=== PATIENT | female | born 1960 | race Caucasian/White ===

== ENCOUNTER 2021-09-13 15:10 | Emergency (ER) | payer SELFPAY ==
--- OUTSIDE RECORDS SUMMARY | 2021-09-13 15:13 | XMS REPORT | Continuity of Care Document ---
:1960 Author Organization [facility] t Address [address] [place] [address] Care Team Providers Name Role Phone margarita Attending Clinician Unavailable Payers Payer Name Policy Type Policy Number Effective Date Expiration Date S ource Sliding Fee - P [id number] 2019 2020 Cat 1 00:00:00 00:00:00 Problems This patient has no known problems. Allergies, Adverse Reactions, Alerts This patient has no known allergies or adverse reactions. Medications This patient has no known medications. Procedures This patient has no known procedures. Encounters Start End Encounter Admission Attending Care Care Encounter Source Date/Time Date/Time Type Type Clinicians Facility Department ID 2021-07-07 Outpatient rudi [facility] [id number] [facility] 16:35:39 [place] [id number] [facility] 2021-03-02 2021-03-02 Outpatient [facility] [id number] [facility] 2021-03-01 2021-03-01 Outpatient [facility] [id number] [facility] Results This patient has no known results.
[2021-09-13] MEDS ORDERED: KETOROLAC 30 MG/ML INJ ONE (16:13)
--- NOTE | 2021-09-13 16:19 | RAD REPORT ---
EXAM DESCRIPTION: RAD - Foot Left 3 View - 09/13/2021 4:12 pm CLINICAL HISTORY: trauma COMPARISON: No comparisons FINDINGS: Minimally displaced fracture involving the metaphysis of the second metatarsal proximally. No new fractures. IMPRESSION: Minimally displaced second proximal metatarsal fracture. No intra-articular extension is identified. No findings to suggest a Lisfranc injury.
[2021-09-13] MEDS ORDERED: TRAMADOL HCL 50 MG TAB ONE (17:02)
--- NOTE | 2021-09-13 17:07 | ER ---
Nurse's Notes [facility] Name: Clara Whitmore Age: 60 yrs Sex: Female : 1960 Arrival Date: 09/13/2021 Time: 15:13 Bed 15 Private MD: Diagnosis: Foot Fracture Presentation: 09/13 15:23 Chief complaint: Patient states: she tripped on the bike rack [place] the movie theatre and ap3 twisted her left foot. Patient states she attempted to make it through the movie, but was unable to due to the pain. Coronavirus screen: At this time, the client does not indicate any symptoms associated with coronavirus-19. Ebola Screen: No symptoms or risks identified at this time. Initial Sepsis Screen: Does the patient meet any 2 criteria? No. Patient's initial sepsis screen is negative. Does the patient have a suspected source of infection? No. Patient's initial sepsis screen is negative. Risk Assessment: Do you want to hurt yourself or someone else? Patient reports no desire to harm self or others. Onset of symptoms was September 13, 2021. 15:23 Method Of Arrival: Wheelchair ap3 15:23 Acuity: ALBARO 4 ap3 Triage Assessment: 15:28 General: Appears in no apparent distress. uncomfortable, Behavior is calm, cooperative, ap3 appropriate for age. Pain: Complains of pain in left foot Pain began suddenly, Current management is with Tylenol. Neuro: Level of Consciousness is awake, alert, obeys commands, Oriented to person, place, time, situation, Appropriate for age. Respiratory: Airway is patent Respiratory effort is even, unlabored. Musculoskeletal: Swelling present in dorsum of left foot. Injury Description: fall. Historical: - Home Meds: 15:26 acne medication [Active]; ap3 - PSHx: 15:26 Appendectomy; Total abdominal hysterectomy; ap3 - Immunization history:: Client reports having NOT received the Covid vaccine. - Social history:: Smoking status: Patient reports the use of cigarette tobacco products, smokes one-half pack cigarettes per day, Patient uses alcohol, occasionally. Screenin:27 Abuse screen: Denies threats or abuse. Nutritional screening: No deficits noted. ap3 Tuberculosis screening: No symptoms or risk factors identified. Fall Risk Fall in past 12 months (25 points). No secondary diagnosis (0 pts). No IV (0 pts). Ambulatory Aid- None/Bed Rest/Nurse Assist (0 pts). Gait- Weak (10 pts.). Mental Status- Oriented to own ability (0 pts). Total Ocasio Fall Scale indicates Low Risk Score (25-44 pts). Fall prevention measures have been instituted. Side Rails Up X 2 Placed close to Nursing Station Frequent Obs/Assesments occuring As available Patient and Family Educated on Fall Prevention Program and strategies. Assessment: 15:34 General: Appears uncomfortable, Behavior is calm, cooperative. Pain: Complains of pain jg9 in left foot Alleviated by rest, ELEVATION Aggravated by weight bearing. Neuro: No deficits noted. Cardiovascular: No deficits noted. Respiratory: No deficits noted. GI: No deficits noted. : No deficits noted. EENT: No deficits noted. Derm: No deficits noted. Musculoskeletal: No deficits noted. Vital Signs: 15:23 BP 117 / 96; Pulse 68; Resp 16; Temp 97.9(TE); Pulse Ox 100% on R/A; Weight 61.23 kg; ap3 Height 5 ft. 5 in. (165.10 cm); 15:30 BP 138 / 93; Pulse 88; Resp 14; Pulse Ox 100% on R/A; jg9 16:42 BP 157 / 97; Pulse 87; Resp 18; Pulse Ox 98% on R/A; fontanez 15:23 Body Mass Index 22.46 (61.23 kg, 165.10 cm) ap3 ED Course: 15:13 Patient arrived in ED. rg4 15:25 Ice pack to injury. jg9 15:26 Triage completed. ap3 15:28 Arm band placed on right wrist. ap3 15:29 Patient has correct armband on for positive identification. Bed in low position. Call ap3 light in reach. Pulse ox on. NIBP on. Door closed. Noise minimized. 15:30 Pura Cole is Primary Nurse. jg9 15:38 Nate Calderon PA is PHCP. jmm 15:38 Chao Walker MD is Attending Physician. jmm 16:12 Foot Left 3 View XRAY In Process Unspecified. EDMS 17:06 Mart Garcia DPM is Referral Physician. jmm 17:25 No provider procedures requiring assistance completed. jg9 17:26 Patient did not have IV access during this emergency room visit. jg9 Administered Medications: 16:16 Drug: Ketorolac 30 mg Route: IM; Site: right deltoid; fontanez 16:16 Follow up: Response: No adverse reaction fontanez 16:45 Follow up: Response: No adverse reaction; Pain is unchanged, physician notified jg9 16:46 Follow up: Response: No adverse reaction; No change in condition jg9 17:03 Drug: traMADol 50 mg {Note: RASS-0.} Route: PO; jg9 Outcome: 17:06 Discharge ordered by . rox 17:25 Discharged to home via wheelchair. jg9 17:25 Condition: stable 17:25 Discharge instructions given to patient, Instructed on discharge instructions, follow up and referral plans. Demonstrated understanding of instructions, follow-up care, medications, crutch walking, management of fx Prescriptions given X 2. 17:26 Patient left the ED. jg9 Signatures: Dispatcher [employer] EDMS Nate Calderon PA PA jmm Garcia, Rubi rg4 Prokisch, Amanda RN RN [email or web address] Pura Cole jg9 KarrieStageVivian sanford Corrections: (The following items were deleted from the chart) 15:27 15:26 Home Meds: None; ap3 ap3
--- NOTE | 2021-09-13 17:07 | EDPHYS ---
Physician Documentation [facility] Name: Clara Whitmore Age: 60 yrs Sex: Female : 1960 Arrival Date: 09/13/2021 Time: 15:13 Bed 15 Private MD: ED Physician Chao Walker HPI: 09/13 15:40 This 60 yrs old Female presents to ER via Wheelchair with complaints of Foot Injury. [facility] 15:40 The patient presents with an injury, pain. The complaints affect the dorsum of left m foot. Onset: The symptoms/episode began/occurred acutely, just prior to arrival. Modifying factors: The symptoms are alleviated by nothing. the symptoms are aggravated by nothing. Associated signs and symptoms: Pertinent positives: swelling. Is a 60-year-old male with no chronic medical conditions presents emergency department with complaints of left foot pain, mainly to the dorsum of the foot which occurred after tripping over an object. Patient denies hitting her head. Denies ankle pain.. Historical: - Home Meds: 15:26 acne medication [Active]; ap3 - PSHx: 15:26 Appendectomy; Total abdominal hysterectomy; ap3 - Immunization history:: Client reports having NOT received the Covid vaccine. - Social history:: Smoking status: Patient reports the use of cigarette tobacco products, smokes one-half pack cigarettes per day, Patient uses alcohol, occasionally. ROS: 15:40 Constitutional: Negative for fever, chills, and weight loss, Cardiovascular: Negative jmm for chest pain, palpitations, and edema, Respiratory: Negative for shortness of breath, cough, wheezing, and pleuritic chest pain. 15:40 MS/extremity: Positive for injury or acute deformity, pain. 15:40 All other systems are negative. Exam: 15:40 Constitutional: This is a well developed, well nourished patient who is awake, alert, jmm and in no acute distress. Head/Face: atraumatic. Eyes: EOMI, no conjunctival erythema appreciated ENT: Moist Mucus Membranes Neck: Trachea midline, Supple Chest/axilla: Normal chest wall appearance and motion. Cardiovascular: Regular rate and rhythm. No edema appreciated Respiratory: Normal respirations, no respiratory distress appreciated Abdomen/GI: Non distended, soft Back: Normal ROM Skin: General appearance color normal 15:40 Musculoskeletal/extremity: ROM: intact in all extremities, Diffuse pain on palpation of the dorsum of the left foot, no obvious deformity appreciated, compartments are soft, full dorsalis pedis pulse appreciated, less than 2 seconds cap refill, neurovascular intact. 15:40 Skin: Appearance: Color: normal in color. 15:40 Neuro: Orientation: is normal, Mentation: is normal, Memory: is normal. 15:40 Psych: Behavior/mood is pleasant, cooperative. Vital Signs: 15:23 BP 117 / 96; Pulse 68; Resp 16; Temp 97.9(TE); Pulse Ox 100% on R/A; Weight 61.23 kg; ap3 Height 5 ft. 5 in. (165.10 cm); 15:30 BP 138 / 93; Pulse 88; Resp 14; Pulse Ox 100% on R/A; jg9 16:42 BP 157 / 97; Pulse 87; Resp 18; Pulse Ox 98% on R/A; fontanez 15:23 Body Mass Index 22.46 (61.23 kg, 165.10 cm) ap3 MDM: 15:40 Patient medically screened. [facility] 17:05 Data reviewed: vital signs, nurses notes. Counseling: I had a detailed discussion with [facility] the patient and/or guardian regarding: the historical points, exam findings, and any diagnostic results supporting the discharge/admit diagnosis, radiology results, the need for outpatient follow up, to return to the emergency department if symptoms worsen or persist or if there are any questions or concerns that arise at home. 09/13 15:44 Order name: Foot Left 3 View XRAY; Complete Time: 16:22 [facility] 09/13 16:22 Order name: Orthopedic shoe; Complete Time: 17:00 [facility] 09/13 16:22 Order name: Crutches; Complete Time: 17:00 [facility] Administered Medications: 16:16 Drug: Ketorolac 30 mg Route: IM; Site: right deltoid; fontanez 16:16 Follow up: Response: No adverse reaction fontanez 16:45 Follow up: Response: No adverse reaction; Pain is unchanged, physician notified jg9 16:46 Follow up: Response: No adverse reaction; No change in condition j9 17:03 Drug: traMADol 50 mg {Note: RASS-0.} Route: PO; jg9 Disposition: 18:54 Co-signature as Attending Physician, Chao Walker MD I agree with the assessment and vania plan of care. Disposition Summary: 09/13/21 17:06 Discharge Ordered Location: Home [facility] Condition: Stable jm Diagnosis - Foot Fracture jm Followup: [facility] - With: Private Physician - When: 2 - 3 days - Reason: Recheck today's complaints, Continuance of care, Re-evaluation by your physician Followup: jmm - With: Mart Garcia DPM - When: 2 - 3 days - Reason: Recheck today's complaints, Continuance of care, Re-evaluation by your physician Discharge Instructions: - Discharge Summary Sheet jmm - Metatarsal Fracture jmm - RICE Therapy for Routine Care of Injuries [facility] Forms: - Medication Reconciliation Form [facility] - Thank You Letter [facility] - Antibiotic Education [facility] - Prescription Opioid Use [facility] Prescriptions: - Ultracet 37.5-325 mg Oral Tablet - take 1 tablet by ORAL route every 6 hours - for up to 5 days; do not exceed 8 jmm tablets per day.; 20 tablet; Refills: 0, Product Selection Permitted - orphenadrine citrate 100 mg Oral Tablet Sustained Release - take 1 tablet by ORAL route 2 times per day As needed; 20 tablet; Refills: 0, jmm Product Selection Permitted Signatures: Dispatcher [employer] EDChao Zayas MD MD cha Mickail, Joel, PA PA jmm Prokisch, Amanda, RN RN ap3 Pura Coleg9 Vivian Cardenas Corrections: (The following items were deleted from the chart) 15:27 15:26 Home Meds: None; ap3 ap3
[2021-09-13 17:42] VITALS: TEMP 97.9
[2021-09-13 17:43] VITALS: BP 157/97; O2SAT 98
== END 2021-09-13 17:26 | disposition home or self-care (01) ==
LOC: ER 15:10
DX: S92.902A Unspecified fracture of left foot, initial encounter for closed fracture (principal); W18.09XA Striking against other object with subsequent fall, initial encounter; Y92.254 Theater (live) as the place of occurrence of the external cause; F17.210 Nicotine dependence, cigarettes, uncomplicated
CPT/HCPCS: 96372; 99284